=== PATIENT | male | born 1960 | race Two or more races ===

== ENCOUNTER 2024-01-04 20:30 | Emergency (ER) | payer OTHER ==
[~2024-01-04] VITALS: Ht 171.4 cm; Wt 62.0 kg
[2024-01-04] MEDS ORDERED: IBUP-45 PO (20:39)
[2024-01-04] MEDS ORDERED: ATOR10TA PO (20:39)
[2024-01-04] MEDS ORDERED: PROP10TA73 PO (20:39)
[2024-01-04] MEDS ORDERED: KETOROLAC TROMETHAMINE 30 MG/ML VIAL IM ONE (22:45)
[2024-01-04] MEDS ORDERED: HYDR-4723 PO (22:54)
[2024-01-04] MEDS ORDERED: VALA100026 PO (22:54)
[2024-01-04] MEDS: HYDROCODONE/ACETAMINOPHEN 5-325 MG TABLET PO ONE (22:59)
[2024-01-04] MEDS: KETOROLAC TROMETHAMINE 60 MG/2 ML VIAL IM ONE (22:59)
[2024-01-04 23:00] VITALS: BP 128/71; PULSE 68; RESP 16; TEMP 98.3
== END 2024-01-04 23:00 | disposition home or self-care (01) ==
LOC: EMS 20:30
DX: B02.9 Zoster without complications (principal); E78.00 Pure hypercholesterolemia, unspecified; Z98.890 Other specified postprocedural states
CPT/HCPCS: 99283; 96372; J1885